=== PATIENT | female | born 1990 ===

== ENCOUNTER 2016-05-07 09:17 | Inpatient (IN) | payer OTHER ==
[~2016-05-07] VITALS: Ht 177.8 cm; Wt 103.9 kg
[2016-05-07] MEDS ORDERED: Lactated Ringer's 1,000 ML IV PRN ×2 (09:18→09:19)
[2016-05-07] MEDS ORDERED: Methylergonovine 0.2 mg/mL Inj IM PRN ×3 (09:20→14:05)
[2016-05-07] MEDS ORDERED: Hemorrhage Kit, Post Partum XX ONE ×3 (09:20→14:05)
[2016-05-07] MEDS ORDERED: fentaNYL-PF 50 mCg/mL 2 mL Inj IVPUSH PRN (09:20)
[2016-05-07] MEDS ORDERED: Ondansetron 2 mg/mL 2 mL Inj IVPUSH PRN (09:20)
[2016-05-07] MEDS ORDERED: Oxytocin 10 Unit/mL Inj IM PRN ×2 (09:20)
[2016-05-07] MEDS ORDERED: Carboprost 250 mCg/mL Inj IM PRN ×3 (09:20→14:05)
[2016-05-07] MEDS ORDERED: Oxytocin 30 Units/500 mL LR 30 UNITS in IV Premix 1 EACH IV PRN ×2 (09:20→14:05)
[2016-05-07] MEDS ORDERED: Sodium Chloride LOK Flush 10 mL Syringe IVFLUSH PRN ×2 (09:20)
[2016-05-07] MEDS ORDERED: Oxytocin 30 Units/500 mL LR Premix IV ONE (09:30)
--- NOTE | 2016-05-07 10:32 | PCM.HPOB ---
Subjective Referring Provider: Admitting Physician: Aleksey Leyva MD Primary Care Physician: Nopcp Attending Physician: Aleksey Leyva MD Chief Complaint Active Labor History of Present History of Present Illness Presents today in active labor. Per Pt has been uncomplicated. Her membranes reportedly ruptured this morning at around 07:30. At time of documentation Pt is 6cm dilated, fully effaced and at 0 station. GBS negative. 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 Reports no genital lesions. Hx of UTI, last UA showed mixed urogenital weston. Reports no history of Asthma. Blood type A - Rh negative, Rhogam given 02/09/2016 Past Medical History Medical History: Hx of UTI and HSV 1. Surgical History: Pt reports none Hx Tobacco Use: No Smoking Status: Never Smoker Hx Alcohol Use: Yes (per oput Pt records 1-2 drinks occasionally, last drink in june) Hx Substance Use: No Genetic Screening/Counseling Genetic Screening/Counseling: Negative Review of Systems ROS Pt in active labor at time of interview, distracting pain made accurate ROS difficult to obtain Constitutional: Y: Pain, Fever Cardiovascular: Denies: Chest Pain, Palpitations Gastrointestinal: Reports: Abdominal Pain Allergy Coded Allergies: No Known Allergies (Unverified , 05/07/16) Exam Vital Signs BP - 132/91, HR 105, RR - 18, Temp 36.7 Exam FHR 125 baseline with moderate variability 6-25. No Accelerations or decelerations. Constitutional: Well-developed, Well-nourished HEENT: EOMI Lungs: Clear to Auscultation, Normal Air Movement Heart: Regular Rate/Rhythm (tachycardic) Fundus Firm Abdomen: Gravid Extremities: No Edema Neurological/Psychiatric: Alert, Oriented X3, Moderate Distress Neuro: Grossly Neurologically Intact Gynecologic: Normal: Anus/Perineum, Urethral Meatus, Vagina/Pelvic Support (No evidence of herpatic lesions) Labs/Diagnostics Maternal Blood Type: A (Rh negative) Hx Rho(D) Immune Globulin: Yes Group B Strep Results: Negative Lab History: Positive for: Hx Herpes, Negative for: Hx Chicken Pox, Hx Gonorrhea, Hx HIV, Hx Syphilis OB Intrapartum Assessment/Plan Assessment 25 year old female in active labor with uncomplicated . Problems: (1) Active labor at term Plan: Continue expectant management, anticipate normal vaginal delivery today. Status: Acute ICD Code: [id number] Pain Evaluation: Adequate Pain Control Attending Statement The patient was seen and examined together with Dr. Helms on 05/11/2016 and I agree with the history, exam and plan as outlined in the note above. / MD CHAPARRO Tellez GILES A DO May 07, 2016 10:32 Aleksey Leyva MD Jun 16, 2016 16:35
[2016-05-07 11:05] LABS: Mean Corpuscular Hemoglobin 30.7 pg (27.0-35.0); Mean Corpuscular Volume 88.7 fL (81-100)
[2016-05-07] MEDS ORDERED: PREN1TAB25 PO (11:14)
[2016-05-07] MEDS ORDERED: valacyclovir PO (11:20)
[2016-05-07] MEDS ORDERED: Silver Nitrate Stick TOPICAL ONE (13:50)
[2016-05-07] MEDS ORDERED: Lactated Ringer's 1,000 ML IV SCH (14:01)
[2016-05-07] MEDS ORDERED: Witch Hazel-Glycerin Pads TOPICAL PRN (14:05)
[2016-05-07] MEDS ORDERED: Benzocaine (Dermoplast) 20% 60 Gm Spray TOPICAL PRN (14:05)
[2016-05-07] MEDS ORDERED: LANOlin HPA 7 Gm Ointment TOPICAL PRN (14:05)
[2016-05-07] MEDS ORDERED: HYDROcodone-APAP 5-325 mg Tablet PO PRN (14:05)
--- NOTE | 2016-05-07 15:19 | PCM.OBVAG ---
Vaginal Delivery Date of Service May 07, 2016 Pre Operative Diagnosis Pre Operative Diagnosis Term Post Operative Diagnosis Post Operative Diagnosis Normal Spontaneous Vaginal Delivery Procedure Obstetical Procedure: Normal Spontaneous Vaginal Delivery Head Up Operator Helper/Geotechnical Laboratory Technician Provider and Geotechnical Laboratory Technician: Aleksey Gill DO Indication for Procedure Indication for Procedure Patient is a 25 yo now G1 who presented to Labor and Delivery the day of May 07, 2016 in active labor with reported spontaneous rupture of membranes at 07:30 the morning of admission. She declined epidural anesthesia and had 100 mcg of fentanyl during labor. She is GBS negative. She made normal progress through labor and was found to be complete and ready to push at about 12:00. FHR was baseline 130s-140s scalp stimulation brought heart rate up during labor. Induction: Active labor, SROM, Progressed normally through labor Findings Findings: Second degree perineal laceration noted. Anal sphincter and cervix visualized intact, tear was splayed, tracking to the right greater than left. Obstetrical Findings: (Male), Weight ( 3644 grams), 1 minute (7), 5 minutes (9), Placenta (Intact/Normal) Analgesia/Medications Obstetrical Anesthesia: Local (30 mL 1% Lidocane with epinephrine) Procedure Details Procedure Details A sterile drape was placed under the patient's buttocks and with expulsive efforts, she delivered head. No nuchal cord. The rest of the body was delivered. The baby was placed on maternal abdomen, skin to skin. Warming and stimulating maneuvers were applied. After a minute, the cord was clamped, and cut. The infant was delivered at 12:39. The placenta then delivered spontaneously intact at 12:48 with a three vessel cord. Uterus firmed with manual external massage. The perineum was examined and there was a 2nd degree tear which was repaired with 2-0 vicryl in the usual fashion. Sponge and instrument counts were correct x2 at the close of the procedure. The patient and infant tolerated the procedure well and pt is stable in her room. Blood Loss & Administration Estimated Blood Loss: 300 Post Procedure Plan Post Procedure Plan Normal post care Post delivery Condition: Mom stable, Baby stable to nursery Attending Statement The patient was delivered together with Dr. Monica Gill and I personally performed the perineal laceration repair on 05/07/2016 and I agree with the note above. I was present for the entire procedure. / MD ALANNAH Tellez ERIKA R DO May 07, 2016 14:49 Aleksey Leyva MD May 09, 2016 12:52
--- NOTE | 2016-05-08 09:18 | PCM.PNOBPP ---
Subjective Date of Service May 08, 2016 Subjective Patient is a 25 yo now who presented to Labor and Delivery the day of May 07, 2016 in active labor with reported spontaneous rupture of membranes. She subsequently delivered a term infant. She is sitting up this morning. Doing well, pain controlled with ibuprofen. This afternoon patient remains tachycardic with a HR of 115 and O2 saturation of 98% on room air while sitting holding baby. She continues to not have chest pain, shortness of breath, or any pain in her legs, edema remains trace without swelling. Lochia: Normal Pain Management: PO pain meds Gastrointestinal: Good Appetite, No N/V Postop Activity: Ambulating Independently Group B Strep Results: Negative Blood Type: A (Rh negative) RH Type: Negative Labs Laboratory Tests 05/07/16 09:30: White Blood Count 12.7, Red Blood Count 4.50, Hemoglobin 13.8, Hematocrit 39.9, Mean Corpuscular Volume 88.7, Mean Corpuscular Hemoglobin 30.7, Mean Corpuscular Hemoglobin Concent 34.6, Red Cell Distribution Width 13.9, Platelet Count 300 Exam Vital Signs Vital Signs: VS reviewed, concerns are (tacycardia in low 100's one read of 122 BPM. Afebrile) Exam Abdomen: Fundus firm : Voiding without difficulty Extremities: Normal pulses, Edema 1+ Lungs: Clear to Auscultation, Normal Air Movement Heart: Normal S1, Normal S2, No Murmurs/Rubs/Gallops, Other (mildly tachycardic ) General: Alert, Oriented X3 OB Post Assessment/Plan Assessment Patient is a 25 yo now who presented to Labor and Delivery the day of May 07, 2016 in active labor with reported spontaneous rupture of membranes. Normal spontaneous vaginal delivery with second degree perineal laceration, repaired. Mother working to breastfeed, doing well post . Discussed tachycardia with patient and findings from labs and EKG. Though risk of pulmonary embolism remains low (less than 1%) There is no clear etiology of her tachycardia. Risks and benefits of pulmonary embolism and angiogram were discussed. Questions were answered. Problems: (1) (normal spontaneous vaginal delivery) Plan: Normal post care Status: Acute ICD Code: O80 (2) Tachycardia Plan: CBC and CMP today, Continue to monitor patient's heart rate. Watch for signs of blood clot or pulmonary embolism. Labs show no evidence of reason for tachypnea. CT angiogram PE protocol ordered. Status: Resolved ICD Code: R00.0 (3) Active labor at term Status: Resolved ICD Code: [id number] Pain Evaluation: Adequate Pain Control Post plan: Continue routine post care Attending Statement The patient was seen and examined together with Dr. Von Jaffe DO on 05/08/2016 and I agree with the history, exam and plan as outlined in the note above. VON JAFFE DO May 08, 2016 08:58 Anuel Oakley MD May 08, 2016 18:46
[2016-05-08 10:55] LABS: BASOPHILS % (AUTO) 0.3 % (0-3); EOSINOPHILS % (AUTO) 0.8 % (0-5); MONOCYTES % (AUTO) 6.6 % (4-12); Mean Corpuscular Hemoglobin 30.8 pg (27.0-35.0); Mean Corpuscular Volume 91.5 fL (81-100); NEUTROPHILS % (AUTO) 76.7 % (40-74); Platelet Count 245 bil/L (150-400)
--- NOTE | 2016-05-08 16:34 | DRSVH ---
PROCEDURE: CT ANGIO CHEST PULMONARY EMBOLISM ([id number]) INDICATIONS: tachycardia post TECHNIQUE: After the administration of intravenous contrast, 2 mm thick sections acquired from the pulmonary api joan to the posterior costophrenic angles. 3-dimensional maximum intensity projection (MIP) coronal a nd sagittal reformats were then acquired through the thorax. For radiation dose reduction, the follo wing was used: automated exposure control, adjustment of mA and/or kV according to patient size. COMPARISON: None. FINDINGS: Image quality: Excellent. Pulmonary arteries: Pulmonary arteries are normal in size, and demonstrate no intraluminal filling d efects to suggest central pulmonary embolism. Lungs and pleura: Lungs are clear. No pleural effusions or pneumothorax. Central and peripheral ai rways are patent. Mediastinum: Heart size is normal, without pericardial effusion. No mediastinal or hilar adenopathy . Thoracic aorta is normal in caliber and enhancement. Esophagus is normal in caliber, without hiat al hernia. Bones and chest wall: No suspicious bony lesions. Ribs and thoracic spine appear intact throughout. Thyroid gland is partially visualized. No axillary or supraclavicular adenopathy. Abdomen: Visualized upper abdominal solid organs appear normal in the early arterial phase of enhanc ement. IMPRESSION: 1. No evidence of pulmonary embolism. Dictated by: Justo Kimball M.D. on 05/08/2016 at 16:32 Approved by: Justo Kimball M.D. on 05/08/2016 at 16:32
[2016-05-08] MEDS ORDERED: Ascorbic Acid 500 mg Tablet PO SCH (17:30)
--- NOTE | 2016-05-08 18:28 | PCM.DIOB ---
Obstetrical Disch Instruction Date of Service: May 08, 2016 Dates of Hospitalization Date of Hospital Admission May 07, 2016 at 09:17 Providers Admitting Physician: Aleksey Leyva MD Primary Care Physician: Nopsvitlana Attending Physician: Aleksey Leyva MD Discharge Diagnosis Discharge Diagnosis Normal spontaneous vaginal delivery of term infant Post Operative diagnosis Normal spontaneous vaginal delivery Problems: (1) (normal spontaneous vaginal delivery) Plan: Normal post care Status: Acute ICD Code: O80 (2) Tachycardia Status: Resolved ICD Code: R00.0 (3) Active labor at term Status: Resolved ICD Code: [id number] Diet Discharge Diet: No restrictions Activity Discharge Activity-General: Pelvic Rest for 6 weeks, Try not to overdue, No lifting >15 pounds for 2 weeks Additional Instructions Discharge Instructions Please take the iron and vitamin c together for your anemia. Iron can give you constipation so you have also been given a prescription for docusate to keep you regular. Be sure to follow up in 6 weeks at [facility]. Pelvic rest for 6 weeks (nothing per vagina including intercourse, tampons) If you have chest pain, shortness of breath or have a swollen leg on one side please call the clinic or seek emergency care. If you have a fever greater than 100.4, please call [facility]. There is always someone communication specialist to talk to. If you have an increase in bleeding, call [facility]. If you have a lot of bleeding suddenly, especially if you have symptoms of dizziness & weakness with it, get emergency help. When you see [facility] in two weeks, you will be informed of the results of all the labs. If you start experiencing extreme depression, especially if you feel that you are a danger to yourself or your family, seek emergency help. You have been through a lot -- BE SURE TO TAKE CARE OF YOURSELF. Follow Up Plan Follow Up Plan [facility]. If you have any concerns please call the clinic at any time. Follow-up Provider (F9): Aleksey Leyva MD Call your provider for: Fever or Chills, Shortness of breath, Heavy vaginal bleeding, Excessive constipation, Red painful breasts VON JAFFE DO May 08, 2016 18:28
[2016-05-08] MEDS ORDERED: IBUP-1827 PO (18:31)
[2016-05-08] MEDS ORDERED: DOCU-41 PO (18:31)
[2016-05-08] MEDS ORDERED: Ascorbic Acid PO (18:31)
[2016-05-08] MEDS ORDERED: FERR-74 PO (18:31)
--- NOTE | 2016-05-08 18:52 | PCM.DC.OB ---
Obstetrical Discharge Summary Date of Service May 08, 2016 Date of hospital admission May 07, 2016 at 09:17 Date of Discharge: May 08, 2016 Providers Admitting Physician: Aleksey Leyva MD Primary Care Physician: Nopsvitlana Attending Physician: Aleksey Leyva MD Diagnosis at Time of Discharge Normal spontaneous vaginal delivery Problems: (1) (normal spontaneous vaginal delivery) Status: Acute ICD Code: O80 (2) Tachycardia Status: Resolved ICD Code: R00.0 (3) Active labor at term Status: Resolved ICD Code: [id number] Invasive procedures Normal spontaneous vaginal delivery with second-degree laceration repair Date of Procedure: May 07, 2016 Brief History and Physical: Presents today in active labor. Per Pt has been uncomplicated. Her membranes reportedly ruptured this morning at around 07:30. At time of documentation Pt is 6cm dilated, fully effaced and at 0 station. GBS negative. 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 Reports no genital lesions. Hx of UTI, last UA showed mixed urogenital weston. Reports no history of Asthma. Blood type A - Rh negative, Rhogam given 02/09/2016 Hospital Course: presented to [facility] in active labor with spontaneous rupture of membranes labor progressed normally. She had a normal course with the exception of tachycardia with a resting rate of 115 increasing to the 130s with activity. CBC and CMP were done. EKG showed sinus tachycardia with no st changes. Tachycardia persisted for [address] angiogram of chest to evaluate for pulmonary embolism was negative. Patient discharged to board status in stable condition ([valacyclovir ]) 1 GM PO DAILY (Reported) Last Taken: Unknown Dose on 05/06/16 0800 ([Ascorbic Acid]) 500 MG TABLET 500 MG PO BIDWM Take with iron Prescribed by: VON JAFFE DO Docusate Sodium (Colace) 100 Mg Capsule 100 MG PO BID PRN PRN For Constipation Prescribed by: VON JAFFE DO Ferrous Sulfate (Feosol) 325 Mg Tablet 325 MG PO BIDWM Take with vitamin C Prescribed by: VON JAFFE DO Ibuprofen (Ibuprofen) 600 Mg Tablet 600 MG PO Q6H PRN PRN For Mild Pain Prescribed by: VON JAFFE DO Vit#96/Ferrous Fum/FA ( Tablet) 1 Each Tablet 1 EACH PO ( Reported) Last Taken: Unknown Dose on 05/06/16 0800 Discharge Medications: 1. Ibuprofen 2. Docusate 3. Iron 4. Vitamin C Disposition Discharge to boarder status Discharge Diet: No restrictions Discharge Activity-General: Pelvic Rest for 6 weeks, Try not to overdue Patient instructions Please take the iron and vitamin c together for your anemia. Iron can give you constipation so you have also been given a prescription for docusate to keep you regular. Be sure to follow up in 6 weeks at [facility]. Pelvic rest for 6 weeks (nothing per vagina including intercourse, tampons) If you have chest pain, shortness of breath or have a swollen leg on one side please call the clinic or seek emergency care. If you have a fever greater than 100.4, please call [facility]. There is always someone inspection supervisor to talk to. If you have an increase in bleeding, call [facility]. If you have a lot of bleeding suddenly, especially if you have symptoms of dizziness & weakness with it, get emergency help. When you see [facility] in two weeks, you will be informed of the results of all the labs. If you start experiencing extreme depression, especially if you feel that you are a danger to yourself or your family, seek emergency help. You have been through a lot -- BE SURE TO TAKE CARE OF YOURSELF. VON JAFFE DO May 08, 2016 18:52
== END 2016-05-08 19:20 | disposition home or self-care (01) | DRG 774 ==
LOC: FBC 09:17
PROVIDERS: ADMIT Obstetrics & Gynecology; ATTEND Obstetrics & Gynecology
PROC: 10E0XZZ Delivery of Products of Conception, External Approach (ICD-10-PCS; principal; 2016-05-07)
PROC: 0KQM0ZZ Repair Perineum Muscle, Open Approach (ICD-10-PCS; 2016-05-07)
DX: O70.1 Second degree perineal laceration during delivery (principal); O99.42 Diseases of the circulatory system complicating childbirth; R00.0 Tachycardia, unspecified; Z37.0 Single live birth; Z3A.41 41 weeks gestation of pregnancy